=== PATIENT | female | born 1975 | race Caucasian/White ===

== ENCOUNTER → 2017-03-19 | Outpatient (CLI) | payer BC ==
[~2017-03-19] MED LIST: PANT40TA3 PO; POLY10DR19 RIGHT EYE
--- NOTE | 2017-03-19 17:13 | RADRPT ---
PROCEDURE: CT Head without contrast. CLINICAL INDICATION: Headaches TECHNIQUE: The study was performed utilizing a GE 64-slice multidetector CT scanner. Direct spiral axial CT images of the brain were obtained from the vertex to the skull base without contrast. Cor onal and sagittal reformat images are provided. The CTDI vol is 44.03 mGy and the DLP is 630.2 mGy- cm. The images were reviewed on a PACS workstation. COMPARISON: No prior studies are available for comparison. FINDINGS: The ventricles and cortical sulci are within normal limits. The song-white matter differentiation i s maintained. No intra or extra-axial fluid collection or mass effect or shift in the midline struc tures is seen. The visualized paranasal sinuses, mastoid air cells, orbits, and calvarium are unrem arkable. IMPRESSION: Unremarkable CT of the head without contrast. RPTAT: HPNM Physician Leonardo Date Time Electronically viewed and signed by Physician Leonardo on 03/19/2017 17:13 /
== END | disposition home or self-care (01) ==
LOC: C/S 12:04
PROVIDERS: ATTEND Internal Medicine
DX: R51 Headache (principal)
CPT/HCPCS: 70450

== ENCOUNTER 2017-04-04 18:48 | Emergency (ER) | payer SELFPAY ==
[~2017-04-04] VITALS: Ht 165.1 cm; Wt 64.5 kg
[2017-04-04 19:04] VITALS: Ht 165.1 cm; Wt 64.5 kg
[2017-04-05] MEDS ORDERED: HYDR-906 PO (10:16)
[2017-04-05] MEDS ORDERED: ACET500C5 PO (10:16)
[2017-04-05] MEDS ORDERED: FAMO-18 PO (10:17)
[2017-04-05] MEDS ORDERED: ONDA4TAB8 PO (10:18)
== END 2017-04-04 21:05 | disposition left against medical advice (07) ==
LOC: E/R 18:48
DX: Z53.21 Procedure and treatment not carried out due to patient leaving prior to being seen by health care provider (principal)

== ENCOUNTER 2017-04-05 07:09 | Emergency (ER) | payer BC ==
[~2017-04-05] VITALS: Ht 160 cm; Wt 63.4 kg
[2017-04-05 07:18] VITALS: Ht 160 cm; Wt 63.4 kg
[2017-04-05] MEDS ORDERED: ACETAMINOPHEN 500 MG TAB PO STA (07:55)
[2017-04-05] MEDS ORDERED: ONDANSETRON 4 MG INJ IV STA (07:55)
[2017-04-05] MEDS ORDERED: FAMOTIDINE 20 MG INJ IV ONE (08:00)
[2017-04-05] MEDS ORDERED: DICLOFENAC SODIUM 37.5 MG/ML VIAL IV STA (08:01)
[2017-04-05 08:11] LABS: ADD SCAN DIFF NO
[2017-04-05 08:24] LABS: BASOPHILS % 0.1 % (0.0-2.0); EOSINOPHILS % 0.6 % (0.0-7.0); HEMATOCRIT 39.2 % (37.0-47.0); HEMOGLOBIN 13.5 g/dl (12.0-16.0); LYMPHOCYTES # 0.7 10^3/ul (0.8-2.9); LYMPHOCYTES % 9.6 % (15.0-51.0); MEAN CORPUSCULAR HEMOGLOBIN 30.5 pg (29.0-33.0); MEAN CORPUSCULAR HGB CONC 34.4 g/dl (32.0-37.0); MEAN CORPUSCULAR VOLUME 88.7 fl (82.0-101.0); MEAN PLATELET VOLUME 10.5 fl (7.4-10.4); MONOCYTE # 0.3 10^3/ul (0.3-0.9); MONOCYTES % 4.3 % (0.0-11.0); NEUTROPHIL # 6.2 10^3/ul (1.6-7.5); NEUTROPHILS % 85.1 % (39.0-77.0); PLATELET COUNT 211 10^3/UL (140-415); RED BLOOD COUNT 4.42 10^6/ul (4.20-5.40); RED CELL DISTRIBUTION WIDTH 12.5 % (11.5-14.5); WHITE BLOOD COUNT 7.3 10^3/ul (4.8-10.8)
--- NOTE | 2017-04-05 08:29 | RADRPT ---
PROCEDURE: US Abdomen. CLINICAL INDICATION: abdominal pain TECHNIQUE: Multiple real-time images were acquired of the patient's right upper quadrant abdomen a nd retroperitoneum utilizing a high resolution transducer. COMPARISON: None FINDINGS: The liver demonstrates normal echogenicity. The liver is normal in size and no focal solid lesions are seen. The liver measures 15.3 cm in length. The portal vein is patent with normal direction of f low. No intrahepatic biliary dilatation is seen. The patient is status post cholecystectomy. The common bile duct measures 10 mm in maximal dimension . The visualized portions of the pancreas are unremarkable. The tail of the pancreas is not seen. No free fluid is identified. The right kidney is normal in size, and demonstrate normal echogenicity and cortical thickness. The right kidney measures 11.2 cm in long dimension. There is no evidence of hydronephrosis. There are no kidney stones. RPTAT: AA IMPRESSION: Status post cholecystectomy with a dilated CBD. .Poli Howell MD, MD Date Time Electronically viewed and signed by .Poli Howell MD, on 04/05/2017 08:29 .S/
[2017-04-05 08:48] LABS: ALBUMIN 4.9 g/dl (3.3-4.9); ALBUMIN/GLOBULIN RATIO 1.48; BILIRUBIN,INDIRECT 0.9 mg/dl (0-1.1); BILIRUBIN,TOTAL 0.9 mg/dl (0.2-1.3); CREATININE 0.53 mg/dl (0.44-1.00); POTASSIUM 3.5 mmol/L (3.5-5.1); TOTAL PROTEIN 8.2 g/dl (6.1-8.1)
--- NOTE | 2017-04-05 09:11 | ERD ---
ER Documentation Chief Complaint Date/Time DATE: 04/05/17 TIME: 09:11 Chief Complaint EPIGASTRIC PAIN STARTED YESTERDAY,HX OF GASTRITIS HPI This 42-year-old female presents the emergency department today complaining of abdominal pain that started yesterday. Patient states she has a history of gastritis for which she takes Prilosec. States that she took Advil this morning. States she has some nausea. States that she had her gallbladder removed in 2007. States that the pain goes around to her back. Denies any fevers or chills. ROS All systems reviewed and are negative except as per history of present illness. Medications Home Meds Active Scripts Ondansetron Hcl* (Zofran*) 4 Mg Tablet, 4 MG PO Q6H for NAUSEA AND/OR VOMITING, #30 TAB Prov:ALICE STEIN PA-C 04/05/17 Famotidine* (Pepcid*) 20 Mg Tablet, 20 MG PO BID for 7 Days, TAB Prov:ALICE STEIN PA-C 04/05/17 Acetaminophen* (Tylophen*) 500 Mg Capsule, 1 CAP PO Q6H Y for PAIN AND OR ELEVATED TEMP, #30 CAP Prov:ALICE STEIN PA-C 04/05/17 Hydrocodone/Acetaminophen ([place] 5-325 Tablet) 1 Each Tablet, 1 TAB PO Q6H Y for PAIN, #12 TAB Prov:ALICE STEIN PA-C 04/05/17 Polymyxin B Sulfate-TMP* (Polymyxin B-TMP Eye Drops*) 10 Ml Drops, 1 DROP RIGHT EYE QID for 7 Days, EA Prov:MATTHEW GUIDRY PA-C 05/26/16 Reported Medications Pantoprazole* (Protonix*) 40 Mg Tablet.dr, 40 MG PO DAILY 01/22/13 [None] No Conflict Check 01/14/12 Allergies Allergies: Coded Allergies: morphine (Verified Allergy, Severe, hives, 05/30/16) PMhx/Soc History of Surgery: No Anesthesia Reaction: No Hx Neurological Disorder: No Hx Respiratory Disorders: No Hx Cardiac Disorders: No Hx Psychiatric Problems: No Hx Miscellaneous Medical Probl: No Hx Alcohol Use: No Hx Substance Use: No Hx Tobacco Use: No Smoking Status: Never smoker Physical Exam Vitals Vital Signs Date Time Temp Pulse Resp B/P Pulse Ox O2 Delivery O2 Flow Rate FiO2 04/05/17 07:18 98.8 81 18 157/72 98 Physical Exam Const: Mild distress Head: Atraumatic Eyes: Normal Conjunctiva ENT: Normal External Ears, Nose and Mouth. Neck: Full range of motion..~ No meningismus. Resp: Clear to auscultation bilaterally Cardio: Regular rate and rhythm, no murmurs Abd: Soft, epigastric tenderness, mild right upper quadrant tenderness non distended. Normal bowel sounds. No right lower quadrant pain. No tenderness at McBurney's. Skin: No petechiae or rashes Back: No midline or flank tenderness. No CVA tenderness Ext: No cyanosis, or edema Neur: Awake and alert Psych: Normal Mood and Affect Result Diagram: 04/05/17 0806 04/05/17 0806 Results 24 hrs Laboratory Tests Test 04/05/17 08:06 04/05/17 10:09 White Blood Count 7.310^3/ul Red Blood Count 4.4210^6/ul Hemoglobin 13.5g/dl Hematocrit 39.2% Mean Corpuscular Volume 88.7fl Mean Corpuscular Hemoglobin 30.5pg Mean Corpuscular Hemoglobin Concent 34.4g/dl Red Cell Distribution Width 12.5% Platelet Count 26210^3/UL Mean Platelet Volume 10.5fl Neutrophils % 85.1% Lymphocytes % 9.6% Monocytes % 4.3% Eosinophils % 0.6% Basophils % 0.1% Nucleated Red Blood Cells % 0.0/100WBC Neutrophils # 6.210^3/ul Lymphocytes # 0.710^3/ul Monocytes # 0.310^3/ul Eosinophils # 0.010^3/ul Basophils # 0.010^3/ul Nucleated Red Blood Cells # 0.010^3/ul Sodium Level 142mmol/L Potassium Level 3.5mmol/L Chloride Level 106mmol/L Carbon Dioxide Level 24mmol/L Anion Gap 16 Blood Urea Nitrogen 12mg/dl Creatinine 0.53mg/dl Glucose Level 98mg/dl Calcium Level 9.0mg/dl Total Bilirubin 0.9mg/dl Direct Bilirubin 0.00mg/dl Indirect Bilirubin 0.9mg/dl Aspartate Amino Transf (AST/SGOT) 197IU/L Alanine Aminotransferase (ALT/SGPT) 131IU/L Alkaline Phosphatase 87IU/L Total Protein 8.2g/dl Albumin 4.9g/dl Globulin 3.30g/dl Albumin/Globulin Ratio 1.48 Lipase 15U/L Bedside Urine pH (LAB) 5.5 Bedside Urine Protein (LAB) Negative Bedside Urine Glucose (UA) Negative Bedside Urine Ketones (LAB) Negative Bedside Urine Blood 1+ Bedside Urine Nitrite (LAB) Negative Bedside Urine Leukocyte Esterase (L Negative Current Medications Medications (Trade) Dose Ordered Sig/Lois Route PRN Reason Start Time Stop Time Status Last Admin Dose Admin Famotidine (Pepcid Iv) 20 mg ONCE ONCE IV 04/05/17 08:00 04/05/17 08:01 DC 04/05/17 08:20 Ondansetron HCl (Zofran Inj) 4 mg ONCE STAT IV 04/05/17 07:55 04/05/17 08:00 DC 04/05/17 08:20 Acetaminophen (Tylenol Tab) 500 mg ONCE STAT PO 04/05/17 07:55 04/05/17 08:00 DC 04/05/17 08:20 Diclofenac Sodium (Dyloject) 37.5 mg ONCE STAT IV 04/05/17 08:01 04/05/17 08:02 DC 04/05/17 08:20 DIAGNOSTIC IMAGING REPORT Patient: LINETTE DE : 1975 Age: 42 Sex: F MR #: [id number] DOS: 04/05/17 0000 Ordering MD: ALICE STEIN PA-C Location: [facility] Room/Bed: PROCEDURE: US Abdomen. CLINICAL INDICATION: abdominal pain TECHNIQUE: Multiple real-time images were acquired of the patient's right upper quadrant abdomen and retroperitoneum utilizing a high resolution transducer. COMPARISON: None FINDINGS: The liver demonstrates normal echogenicity. The liver is normal in size and no focal solid lesions are seen. The liver measures 15.3 cm in length. The portal vein is patent with normal direction of flow. No intrahepatic biliary dilatation is seen. The patient is status post cholecystectomy. The common bile duct measures 10 mm in maximal dimension. The visualized portions of the pancreas are unremarkable. The tail of the pancreas is not seen. No free fluid is identified. The right kidney is normal in size, and demonstrate normal echogenicity and cortical thickness. The right kidney measures 11.2 cm in long dimension. There is no evidence of hydronephrosis. There are no kidney stones. RPTAT: AA IMPRESSION: Status post cholecystectomy with a dilated CBD. .Poli Howell MD, Date Time Electronically viewed and signed by .Poli Howell MD, MD on 04/05/2017 08: 29 .S/ CC: ALICE STEIN. SHIRLEY Procedures/MDM Is a 42-year-old female who presents the emergency department today complaining of epigastric pain that radiates around her back. On physical exam patient had epigastric pain and very mild right upper quadrant pain. She does not have any CVA tenderness and she is afebrile and otherwise well-appearing. She does have a history gastritis. I did obtain laboratory work, abdominal ultrasound to rule out a retained stone. Laboratory work shows no elevated white blood cell count. She is not anemic. Platelets are within normal limits. Patient's electrolytes are within normal limits. Liver function is elevated. Lipase is mildly decreased UA is negative for infection Urine test is negative Ultrasound shows status post cholecystectomy with a dilated common bile duct of 10 mm in maximal dimension. There is no free fluid. There is no evidence of hydronephrosis. There are no kidney stones. Patient states that she has an allergy to morphine. She was given dilute jacked and Tylenol here in the emergency department. She was also given Zofran and Pepcid. Patient symptoms at this time is consistent with epigastric pain. This may be caused by patient's history of gastritis versus retained stone given the dilated common bile duct and mildly elevated liver enzymes. This was explained to the patient. There does not appear to be serious concern at this time for acute surgical abdomen. Discussed the patient with Dr. Lincoln and the decision was made to do an MRCP on the patient however patient indicated that she did not want to stay here in the emergency department as she had a graduation to go to for her daughter this evening and she just wanted medication for home. Patient indicated that she would follow-up with her doctor as an outpatient to get the MRCP. Dr. Lincoln has also discussed this with the patient and she is in agreement with the plan. Patient was given information on refusal for further treatment and evaluation. Patient was given a prescription for Pepcid, [place] and Tylenol for home. She was instructed to follow-up with her primary care doctor she may return to the emergency department sooner if symptoms persist or worsen. Patient understood. At this time the patient is stable for discharge and outpatient management. Departure Diagnosis: Primary Impression: Abdominal pain Abdominal location: epigastric Qualified Code: R10.13 - Epigastric pain Condition: Fair ALICE STEIN PA-C Apr 05, 2017 09:11
[2017-04-05 10:06] LABS: URINE BLOOD (Dip) POC 1+ (NEGATIVE)
[2017-04-05] MEDS ORDERED: HYDR-906 PO (10:16)
[2017-04-05] MEDS ORDERED: ACET500C5 PO (10:16)
[2017-04-05] MEDS ORDERED: FAMO-18 PO (10:17)
[2017-04-05] MEDS ORDERED: ONDA4TAB8 PO (10:18)
== END 2017-04-05 10:27 | disposition home or self-care (01) ==
LOC: FTE 07:09
DX: R10.13 Epigastric pain (principal)
CPT/HCPCS: 76705; 80053; 81003; 83690; 85025; 96374; 96375; 99285; J2405

== ENCOUNTER 2017-04-09 10:17 | Inpatient (IN) | payer BC ==
[~2017-04-09] VITALS: Ht 162.6 cm; Wt 63.0 kg
[~2017-04-09 10:17] MED LIST changes: +ACET500C5 PO; +FAMO-18 PO; +HYDR-906 PO; +ONDA4TAB8 PO
[2017-04-09] MEDS ORDERED: SOD CHLORIDE 0.9% 1,000 ML IV STA (10:37)
[2017-04-09] MEDS ORDERED: ACETAMINOPHEN 325 MG TAB PO PRN (11:00)
--- NOTE | 2017-04-09 11:28 | RADRPT ---
PROCEDURE: XR Chest. CLINICAL INDICATION: Abdominal pain TECHNIQUE: Single frontal view of the chest was obtained COMPARISON: 05/21/2016 FINDINGS: The heart and mediastinum are within normal limits. The lungs are clear. There is no pleural effusion or pneumothorax. RPTAT: AA IMPRESSION: No acute disease. .Poli Howell MD, MD Date Time Electronically viewed and signed by .Poli Howell MD, MD on 04/09/2017 11:28 .S/
[2017-04-09 11:37] LABS: ADD SCAN DIFF NO
[2017-04-09 11:45] LABS: BASOPHILS % 0.2 % (0.0-2.0); EOSINOPHILS # 0.1 10^3/ul (0.0-0.5); EOSINOPHILS % 1.4 % (0.0-7.0); HEMATOCRIT 37.3 % (37.0-47.0); HEMOGLOBIN 12.6 g/dl (12.0-16.0); LYMPHOCYTES # 2.4 10^3/ul (0.8-2.9); LYMPHOCYTES % 48.3 % (15.0-51.0); MEAN CORPUSCULAR HEMOGLOBIN 30.3 pg (29.0-33.0); MEAN CORPUSCULAR HGB CONC 33.8 g/dl (32.0-37.0); MEAN CORPUSCULAR VOLUME 89.7 fl (82.0-101.0); MEAN PLATELET VOLUME 10.2 fl (7.4-10.4); MONOCYTE # 0.3 10^3/ul (0.3-0.9); NEUTROPHIL # 2.1 10^3/ul (1.6-7.5); NEUTROPHILS % 42.9 % (39.0-77.0); PLATELET COUNT 236 10^3/UL (140-415); RED BLOOD COUNT 4.16 10^6/ul (4.20-5.40); RED CELL DISTRIBUTION WIDTH 12.5 % (11.5-14.5); WHITE BLOOD COUNT 4.9 10^3/ul (4.8-10.8)
[2017-04-09 12:10] LABS: ALBUMIN 5.1 g/dl (3.3-4.9); ALBUMIN/GLOBULIN RATIO 1.7; BILIRUBIN,INDIRECT 0.1 mg/dl (0-1.1); BILIRUBIN,TOTAL 0.1 mg/dl (0.2-1.3); CALCIUM 9.3 mg/dl (8.4-10.2); CREATININE 0.57 mg/dl (0.44-1.00); POTASSIUM 3.7 mmol/L (3.5-5.1); TOTAL PROTEIN 8.1 g/dl (6.1-8.1)
[2017-04-09 12:19] LABS: ADD UMIC YES; URINE BILIRUBIN (Dip) NEGATIVE (NEGATIVE); URINE BLOOD (Dip) 2+ (NEGATIVE); URINE COLOR LT. YELLOW (YELLOW); URINE GLUCOSE (Dip) NEGATIVE (NEGATIVE); URINE KETONES (Dip) NEGATIVE (NEGATIVE); URINE LEUKOCYTE ESTERASE (Dip) NEGATIVE (NEGATIVE); URINE NITRITE (Dip) NEGATIVE (NEGATIVE); URINE TOTAL PROTEIN (Dip) NEGATIVE (NEGATIVE); URINE UROBILINOGEN (Dip) 0.2 E.U./dL (0.1-1.0)
[2017-04-09 12:34] LABS: BACTERIA,URINE RARE; URINE RBCS 0-2 /HPF (0)
--- NOTE | 2017-04-09 13:49 | ERA ---
ER Documentation Chief Complaint Date/Time DATE: 04/09/17 TIME: 13:48 Chief Complaint EPIGASTRIC PAIN X6 DAYS, SEEN ON SATURDAY, DENIES N/V/D HPI Patient is a 42-year-old female who presents for abdominal pain. The patient was sent by Dr. Beard for admission. He tried to direct admit the patient yesterday but unfortunately there were no beds available. The patient has abdominal pain which started morning. The patient was seen in the emergency department on Saturday morning. She has had elevated liver tests. The pain comes and goes. The patient had nausea as well. There have been no fevers. Upon review of old medical records the patient has multiple visits to the ER for various complaints. ROS All systems reviewed and are negative except as per history of present illness. Medications Home Meds Active Scripts Ondansetron Hcl* (Zofran*) 4 Mg Tablet, 4 MG PO Q6H for NAUSEA AND/OR VOMITING, #30 TAB Prov:ALICE STEIN PA-C 04/05/17 Famotidine* (Pepcid*) 20 Mg Tablet, 20 MG PO BID for 7 Days, TAB Prov:ALICE STEIN PA-C 04/05/17 Acetaminophen* (Tylophen*) 500 Mg Capsule, 1 CAP PO Q6H Y for PAIN AND OR ELEVATED TEMP, #30 CAP Prov:ALICE STEIN PA-C 04/05/17 Hydrocodone/Acetaminophen ([place] 5-325 Tablet) 1 Each Tablet, 1 TAB PO Q6H Y for PAIN, #12 TAB Prov:ALICE STEIN PA-C 04/05/17 Reported Medications Pantoprazole* (Protonix*) 40 Mg Tablet., 40 MG PO DAILY 01/22/13 Discontinued Reported Medications [None] No Conflict Check 01/14/12 Discontinued Scripts Polymyxin B Sulfate-TMP* (Polymyxin B-TMP Eye Drops*) 10 Ml Drops, 1 DROP RIGHT EYE QID for 7 Days, EA Prov:MATTHEW GUIDRY PA-C 05/26/16 Allergies Allergies: Coded Allergies: morphine (Verified Allergy, Severe, hives, 05/30/16) PMhx/Soc Medical and Surgical Hx: pt denies Medical Hx, pt denies Surgical Hx History of Surgery: No Anesthesia Reaction: No Hx Neurological Disorder: No Hx Respiratory Disorders: No Hx Cardiac Disorders: No Hx Psychiatric Problems: No Hx Miscellaneous Medical Probl: No Hx Alcohol Use: No Hx Substance Use: No Hx Tobacco Use: No Smoking Status: Never smoker FmHx Family History: No diabetes Physical Exam Vitals Vital Signs Date Time Temp Pulse Resp B/P Pulse Ox O2 Delivery O2 Flow Rate FiO2 04/09/17 11:28 71 18 139/96 100 Room Air 04/09/17 10:30 97.0 67 20 148/74 100 Physical Exam Const: No acute distress Head: Atraumatic Eyes: Normal Conjunctiva ENT: Normal External Ears, Nose and Mouth. Neck: Full range of motion..~ No meningismus. Resp: Clear to auscultation bilaterally Cardio: Regular rate and rhythm, no murmurs Abd: Soft, epigastric tenderness to palpation with guarding Skin: No petechiae or rashes Back: No midline or flank tenderness Ext: No cyanosis, or edema Neur: Awake and alert Psych: Normal Mood and Affect Result Diagram: 04/09/17 1115 04/09/17 1115 Results 24 hrs Laboratory Tests Test 04/09/17 11:15 04/09/17 11:57 White Blood Count 4.910^3/ul Red Blood Count 4.1610^6/ul Hemoglobin 12.6g/dl Hematocrit 37.3% Mean Corpuscular Volume 89.7fl Mean Corpuscular Hemoglobin 30.3pg Mean Corpuscular Hemoglobin Concent 33.8g/dl Red Cell Distribution Width 12.5% Platelet Count 50770^3/UL Mean Platelet Volume 10.2fl Neutrophils % 42.9% Lymphocytes % 48.3% Monocytes % 7.0% Eosinophils % 1.4% Basophils % 0.2% Nucleated Red Blood Cells % 0.0/100WBC Neutrophils # 2.110^3/ul Lymphocytes # 2.410^3/ul Monocytes # 0.310^3/ul Eosinophils # 0.110^3/ul Basophils # 0.010^3/ul Nucleated Red Blood Cells # 0.010^3/ul Sodium Level 146mmol/L Potassium Level 3.7mmol/L Chloride Level 106mmol/L Carbon Dioxide Level 29mmol/L Anion Gap 15 Blood Urea Nitrogen 8mg/dl Creatinine 0.57mg/dl Glucose Level 89mg/dl Calcium Level 9.3mg/dl Total Bilirubin 0.1mg/dl Direct Bilirubin 0.00mg/dl Indirect Bilirubin 0.1mg/dl Aspartate Amino Transf (AST/SGOT) 49IU/L Alanine Aminotransferase (ALT/SGPT) 118IU/L Alkaline Phosphatase 120IU/L Total Protein 8.1g/dl Albumin 5.1g/dl Globulin 3.00g/dl Albumin/Globulin Ratio 1.70 Lipase 19U/L Urine Color LT. YELLOW Urine Clarity CLEAR Urine pH 5.5 Urine Specific [place] >=1.030 Urine Ketones NEGATIVE Urine Nitrite NEGATIVE Urine Bilirubin NEGATIVE Urine Urobilinogen 0.2 E.U./dL Urine Leukocyte Esterase NEGATIVE Urine Microscopic RBC 0-2/HPF Urine Microscopic WBC 0-2/HPF Urine Epithelial Cells RARE Urine Bacteria RARE Urine Hemoglobin 2+ Urine Glucose NEGATIVE% Urine Total Protein NEGATIVE Current Medications Medications (Trade) Dose Ordered Sig/Lois Route PRN Reason Start Time Stop Time Status Last Admin Dose Admin Sodium Chloride (NS) 1,000 ml @ 1,000 mls/hr Q1H STAT IV 04/09/17 10:37 04/09/17 11:36 DC 04/09/17 11:18 Ondansetron HCl (Zofran Inj) 4 mg BRIDGE ORDER PRN IV NAUSEA AND/OR VOMITING 04/09/17 11:00 04/10/17 10:59 Acetaminophen (Tylenol Tab) 650 mg ER BRIDGE PRN PO MILD PAIN/FEVER 04/09/17 11:00 04/10/17 10:59 Procedures/MDM Patient is a 42-year-old female who presents with abdominal pain. Her AST and ALT are slightly elevated. She has had a previous cholecystectomy. Dr. Beard would like to admit her to a medical surgical bed. He plans to do an MRCP to further evaluate the cause of her pain and elevated liver tests. At this point I doubt cholecystitis, pancreatitis, appendicitis, or bowel obstruction. Departure Diagnosis: Primary Impression: Elevated liver enzymes Additional Impression: Epigastric pain Condition: TRACY Lopez MD Apr 09, 2017 13:49
[2017-04-09 18:19] VITALS: PULSE 56
[2017-04-09] MEDS ORDERED: HYDROmorphONE 1 MG/ML SYG IV PRN (18:30)
--- NOTE | 2017-04-09 18:36 | HP ---
DATE OF ADMISSION: 04/09/2017 HISTORY OF PRESENT ILLNESS: The patient is a 42-year-old lady known to me from previous followup, p resenting with severe recurrent abdominal pain for the past 5 days. The patient was seen 3 days josiah or and was advised admission, and patient did not want to be admitted and I saw her in the office ye sterday. I attempted to admit the patient directly, but there were no beds available. The patient was therefore referred to the emergency room from where she is in the process of being admitted. REVIEW OF SYSTEMS: HEAD: No history of headaches, focal weakness, or numbness. EYES: No blurry vision or glaucoma. ENT: Noncontributory. NECK: No history of thyroid disease. CHEST: No bronchitis, hayfever, or asthma. HEART: No PND, orthopnea, palpitations. GASTROINTESTINAL: Abdominal pain as above. The patient nauseous, has been having poor p.o. intake. No history of jaundice. Status post cholecystectomy 2 years ago. GENITOURINARY: No dysuria, hematuria, or kidney stones. PHYSICAL EXAMINATION: GENERAL: The patient is an average-built female who is very pleasant. VITAL SIGNS: Afebrile, blood pressure 123/78, respirations 20 per minute. HEENT: Head normocephalic. Mild pallor without cyanosis. Tongue is coated, dry. NECK: Supple. No thyromegaly, bruits or lymphadenopathy. CHEST: Clinically clear. ABDOMEN: Soft, moderate epigastric tenderness without rebound. EXTREMITIES: No edema. LABORATORY DATA: WBC count 4.9, hematocrit 37.3. AST is 49, ALT is 118. UA shows 2+ hemoglobin. Chest x-ray shows normal size heart, lung singletary clear. IMPRESSION: Severe recurrent abdominal pain for the last 5 days with increased transaminase levels. Rule out choledocholithiasis. PLAN: Admit the patient. IV hydration. Start the patient on Zosyn. Order for MRCP and GI consul tation with Dr. Perez and we will follow the recommendations. Dictated By: SHAHZAD LADD MD SR/NTS Conf#: [id number] DID#: [id number]
[2017-04-09] MEDS: D5W-0.45 NACL + KCL 20 MEQ 1,000 ML IV SCH (19:00)
[2017-04-09 21:45] VITALS: BP 137/80; RESP 20; Ht 162.6 cm; Wt 63.0 kg
[2017-04-09] MEDS: PIPER-TAZO 3.375 GM IV (PMX) 100 ML IVPB SCH (22:17)
[2017-04-09] MEDS: ONDANSETRON 4 MG INJ IV PRN (22:22)
--- NOTE | 2017-04-09 22:35 | CONS ---
Date/Time of Note Date/Time of Note DATE: 04/09/17 TIME: 22:31 Assessment/Plan Assessment/Plan Additional Assessment/Plan 1.abdominal pain ,abnormal liver function,dilated bile duct,R/O bile duct stone, gastritis,biliary dyskinesia Consultation Date/Type/Reason Admit Date/Time Apr 09, 2017 at 10:39 Initial Consult Date 24 HR Interval Summary Free Text/Dictation abdominal pain,nausea Exam/Review of Systems Vital Signs Vitals Vital Signs Date Time Temp Pulse Resp B/P Pulse Ox O2 Delivery O2 Flow Rate FiO2 04/09/17 18:19 56 18 130/87 100 Room Air 04/09/17 10:30 97.0 Exam Constitutional: alert, oriented, well developed Psych: nl mood/affect, no complaints Head: atraumatic, normocephalic Eyes: EOMI, PERRL, nl conjunctiva, nl lids, nl sclera ENMT: nl external ears & nose, nl lips & teeth, nl nasal mucosa & septum Neck: non-tender, supple Respiratory: clear to auscultation, normal air movement Cardiovascular: nl pulses, regular rate and rhythm Gastrointestinal: nl liver, spleen, non-tender, soft Musculoskeletal: nl extremities to inspection, nl gait and stance Extremities: normal pulses 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, nl mental status, nl speech, nl strength Skin: nl turgor, No rash or lesions Lymph: nl lymph nodes Results Result Diagram: 04/09/17 1115 04/09/17 1115 Results 24 hrs Laboratory Tests Test 04/09/17 11:15 04/09/17 11:57 White Blood Count 4.9 # Red Blood Count 4.16 L Hemoglobin 12.6 Hematocrit 37.3 Mean Corpuscular Volume 89.7 Mean Corpuscular Hemoglobin 30.3 Mean Corpuscular Hemoglobin Concent 33.8 Red Cell Distribution Width 12.5 Platelet Count 236 Mean Platelet Volume 10.2 Neutrophils % 42.9 Lymphocytes % 48.3 Monocytes % 7.0 Eosinophils % 1.4 Basophils % 0.2 Nucleated Red Blood Cells % 0.0 Neutrophils # 2.1 Lymphocytes # 2.4 Monocytes # 0.3 Eosinophils # 0.1 Basophils # 0.0 Nucleated Red Blood Cells # 0.0 Sodium Level 146 H Potassium Level 3.7 Chloride Level 106 Carbon Dioxide Level 29 Anion Gap 15 Blood Urea Nitrogen 8 Creatinine 0.57 Glucose Level 89 Calcium Level 9.3 Total Bilirubin 0.1 L Direct Bilirubin 0.00 Indirect Bilirubin 0.1 Aspartate Amino Transf (AST/SGOT) 49 H Alanine Aminotransferase (ALT/SGPT) 118 H Alkaline Phosphatase 120 Total Protein 8.1 Albumin 5.1 H Globulin 3.00 Albumin/Globulin Ratio 1.70 Lipase 19 L Urine Color LT. YELLOW Urine Clarity CLEAR Urine pH 5.5 Urine Specific [place] >=1.030 H Urine Ketones NEGATIVE Urine Nitrite NEGATIVE Urine Bilirubin NEGATIVE Urine Urobilinogen 0.2 E.U./dL Urine Leukocyte Esterase NEGATIVE Urine Microscopic RBC 0-2 Urine Microscopic WBC 0-2 Urine Epithelial Cells RARE Urine Bacteria RARE Urine Hemoglobin 2+ H Urine Glucose NEGATIVE Urine Total Protein NEGATIVE Medications Medications Current Medications Piperacillin Sod/ Tazobactam Sod (Zosyn 3.375gm/ 100 ml (Pmx)) 100 ml @ 200 mls /hr Q8 IVPB Last administered on 04/09/17 22:17; Admin Dose 200 MLS/HR; Start 04/09/17 at 22:00 Hydromorphone HCl 1 mg 1 mg Q4 PRN IV PAIN LEVEL 6-10 Last administered on 22:22; Admin Dose 1 MG; Start 04/09/17 at 18:30 Potassium Chloride/Dextrose/ Sod Cl (D5-1/2ns + KCl 20 Meq) 1,000 ml @ 75 mls/ hr [id number] IV Last administered on 04/09/17 19:00; Admin Dose 75 MLS/HR; Start 04/09/17 at 18:30 SINA HUMPHREY MD Apr 09, 2017 22:34
[2017-04-10 05:22] LABS: ADD SCAN DIFF NO
[2017-04-10 05:30] LABS: BASOPHILS % 0.2 % (0.0-2.0); EOSINOPHILS % 0.2 % (0.0-7.0); HEMATOCRIT 36.7 % (37.0-47.0); HEMOGLOBIN 12.6 g/dl (12.0-16.0); LYMPHOCYTES # 1.3 10^3/ul (0.8-2.9); LYMPHOCYTES % 21.9 % (15.0-51.0); MEAN CORPUSCULAR HEMOGLOBIN 30.4 pg (29.0-33.0); MEAN CORPUSCULAR HGB CONC 34.3 g/dl (32.0-37.0); MEAN CORPUSCULAR VOLUME 88.6 fl (82.0-101.0); MONOCYTE # 0.3 10^3/ul (0.3-0.9); MONOCYTES % 5.5 % (0.0-11.0); NEUTROPHIL # 4.3 10^3/ul (1.6-7.5); PLATELET COUNT 246 10^3/UL (140-415); RED BLOOD COUNT 4.14 10^6/ul (4.20-5.40); RED CELL DISTRIBUTION WIDTH 12.1 % (11.5-14.5)
[2017-04-10 05:50] LABS: ALBUMIN 4.9 g/dl (3.3-4.9); ALBUMIN/GLOBULIN RATIO 1.68; BILIRUBIN,INDIRECT 0.2 mg/dl (0-1.1); BILIRUBIN,TOTAL 0.2 mg/dl (0.2-1.3); CALCIUM 8.9 mg/dl (8.4-10.2); CREATININE 0.6 mg/dl (0.44-1.00); POTASSIUM 4.3 mmol/L (3.5-5.1); TOTAL PROTEIN 7.8 g/dl (6.1-8.1)
[2017-04-10] MEDS: PIPER-TAZO 3.375 GM IV (PMX) 100 ML IVPB SCH ×3 (06:01→22:10)
[2017-04-10] MEDS: ONDANSETRON 4 MG INJ IV PRN (08:21)
[2017-04-10 08:52] VITALS: BP 134/70; RESP 16
[2017-04-10] MEDS ORDERED: KETOROLAC 15 MG INJ IV STA (09:35)
[2017-04-10] MEDS ORDERED: PANTOPRAZOLE 40 MG INJ IV ONE (10:00)
--- NOTE | 2017-04-10 11:18 | RADRPT ---
PROCEDURE: MRCP. CLINICAL INDICATION: Abdominal pain, abnormal liver function tests. TECHNIQUE: MRCP was performed. Patient was examined without contrast. 3-D coronal rotating MIP i mages of the biliary tree are available for review. COMPARISON: Ultrasound, 04/05/2017 FINDINGS: The gallbladder is surgically absent. There is nonspecific mild prominence of the intra and extrahe patic biliary ducts - common bile duct maximal diameter is 9 mm. No common duct stone, stricture or filling defect is identified. Pancreatic duct is normal in caliber. Liver, pancreas, spleen, adrenal glands and kidneys are unremarkable. There is no obstructive uropa thy. The stomach is grossly unremarkable. Abdominal aorta is normal in caliber. No retroperitonea l or jerry hepatis lymphadenopathy is seen. There is no bowel obstruction, abscess or ascites. The surrounding osseous structures are unremarkable. IMPRESSION: 1. Gallbladder is surgically absent. 2. There is nonspecific prominence intra and extrahepatic biliary ducts - common bile duct maximal diameter is 9 mm. No common duct stone, stricture or filling defect is seen. RPTAT: EE .Pop Cooley MD, MD Date Time Electronically viewed and signed by .Pop Cooley MD, on 04/10/2017 11:18 .R/
[2017-04-10] MEDS: D5W-0.45 NACL + KCL 20 MEQ 1,000 ML IV SCH ×2 (11:43→21:10)
[2017-04-10] MEDS ORDERED: IOHEXOL 14.3 MG(I)/ML (ADULT) BTL PO ONE (14:30)
[2017-04-10] MEDS ORDERED: IOHEXOL 300MG/ML 150 ML BTL ONE (16:03)
[2017-04-10] MEDS ORDERED: SOD CHLORIDE 0.9% 100 ML ONE (16:03)
--- NOTE | 2017-04-10 17:37 | RADRPT ---
PROCEDURE: CT abdomen and pelvis with contrast and with 3-D reconstructions CLINICAL INDICATION: Elevated LFTs TECHNIQUE: CT scan of the abdomen and pelvis with intravenous contrast was performed on a multisli ce CT scanner. 3-D sagittal and coronal reformatted images were obtained from the axial source image s. DLP 537.24 mGycm CTDIvol 10.31 mGy COMPARISON: MRI abdomen from the same date FINDINGS: The visualized lung bases are unremarkable. The liver is homogenous in attenuation. There are no focal liver lesions. There is nonspecific mild intrahepatic biliary ductal dilatation. There are surgical clips in the gallbladder fossa consisten t with cholecystectomy. The extrahepatic common bile duct measures up to 9 mm in diameter which is at least in part due to post cholecystectomy change. The spleen, pancreas, and adrenal glands are within normal limits. The pancreatic duct is nondilated . The kidneys are symmetric. There is a sub-centimeter hypodensity in the midpole of the left kidney which is nonspecific, but likely a cyst.. There are no renal calculi. There is no obstructive uropat hy. There are no dilated or thickened loops of bowel. The appendix is within normal limits. There are a few primarily sigmoid colonic diverticula without evidence of diverticulitis. The aorta is within normal limits. There are no enlarged mesenteric, periaortic, or retroperitoneal lymph nodes. The bladder is within normal limits. The uterus is not visualized. There is no free air. There is n o free fluid. There are no enlarged intrapelvic or inguinal lymph nodes. Osseous and soft tissue structures are unremarkable. IMPRESSION: Redemonstration of nonspecific mild intrahepatic biliary ductal dilatation. The patient is status p ost cholecystectomy and the common bile duct measures up to 9 mm which is at least in part due to po st cholecystectomy change. Correlation with a bilirubin level for signs of cholestasis is recommend ed. No renal/ureteral calculi or hydronephrosis. Normal appendix. Colonic diverticula without evidence of diverticulitis. These findings were discussed with Micky Barragan over the phone on 04/10/2017 at 5:36 PM . RPTAT: EE Physician Mamie Date Time Electronically viewed and signed by Physician Mamie on 04/10/2017 17:37 RA/
--- NOTE | 2017-04-10 18:05 | CONS ---
DATE OF ADMISSION: 04/09/2017 DATE OF CONSULTATION: 04/10/2017 TYPE OF CONSULTATION: Urology REQUESTING PHYSICIAN: Dr. Beard Dear Micky, Thank you for asking me to see this patient in urological consultation. HISTORY OF PRESENT ILLNESS: She is a 42-year-old female who works at [employer] a nd she presented with pain in the epigastric area going under the right subcostal area and towards t he back. The patient has had this pain constantly for the past 3 or 4 days. The pain is associated with nausea, but there was no vomiting. The patient underwent an MRI of the abdomen and that showe d that there is nonspecific prominence and intra- and extrahepatic biliary duct dilatation. There is a common bile duct maximal diameter is 9 mm, no common duct stone, stricture or filling defect an d a urological consultation was requested to see if there is any urological explanation for her pain . The patient denies having any dysuria, no hematuria, no history of kidney stones. PAST MEDICAL HISTORY: Includes a history of she is a 5, para 4, 1 miscarriage and 4 normal deliveries. She has had a hysterectomy for fibroids and also cholecystectomy. ALLERGIES: MORPHINE. SOCIAL HISTORY: Does not smoke, does not drink any alcohol, and there is no history of drug abuse. MEDICATIONS: Include: 1. Zosyn. 2. Dilaudid. 3. Potassium chloride. PHYSICAL EXAMINATION: GENERAL: Reveals a 42-year-old female who is presently comfortable, in no acute distress. HEAD AND NECK: Unremarkable. The neck is supple. BACK: There is no flank tenderness. ABDOMEN: Soft. She points to her right subcostal and epigastric area as the area of the pain. The re is no abdominal mass palpable. No suprapubic tenderness. PELVIC: Revealed no mass and no discharge. LABORATORY DATA: Her CBC shows a white count of 6.0, hemoglobin 12.6, hematocrit 36.7. BUN is 8, c reatinine 0.6, AST is 107, ALT 137. The urinalysis, 2+ occult blood and she has 0 to 2 RBCs, 0 to 2 WBCs. The patient then underwent a CT scan of the abdomen and pelvis after you and I discussed it on the phone and again, the CT scan showed normal kidneys, but there is intra and extrahepatic duct dilatation and the appendix is normal and there is some diverticulosis, but no diverticulitis. IMPRESSION: Normal urinary system. No urinary pathology that may explain her pain. Her pain is st ill most likely gastrointestinal and especially that her ALT and AST are elevated. RECOMMENDATION: From a urological standpoint, she does not need any further workup and I recommend the GI workup as planned by Dr. Perez. Dictated By: JUAN SAMUELS/STEPHON Conf#: [id number] DID#: [id number]
--- NOTE | 2017-04-10 22:00 | CONS ---
DATE OF ADMISSION: 04/09/2017 DATE OF CONSULTATION: TYPE OF CONSULTATION: Gastroenterology. HISTORY OF PRESENT ILLNESS: A 42-year-old female admitted to the hospital for pain in epigastric ar ea, right upper quadrant, radiating to the back, associated with some nausea. No fever, no chills. No GI bleeding. No chest pain, no shortness of breath, no heartburn. 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 PAST MEDICAL HISTORY: The patient had hysterectomy for a fibroid and cholecystectomy. ALLERGIES: MORPHINE. SOCIAL HISTORY: Does not smoke or drink alcohol. No history of drug abuse. MEDICATIONS: In the hospital: 1. Zosyn. 2. Dilaudid. 3. Potassium chloride. PHYSICAL EXAMINATION: GENERAL: Well built, nourished, not in distress. VITAL SIGNS: Stable. HEENT: Unremarkable. NECK: Supple. No thyromegaly, no lymphadenopathy. CARDIOVASCULAR: No murmur, gallop or click. LUNGS: Clear. ABDOMEN: Benign. IMAGING: I reviewed sonogram, CAT scan and MRCP. All of them showed a dilated biliary system, both extrahepatic and intrahepatic, believed to be compensatory from the cholecystectomy. Liver functio n had been normal. No other pathology was found on CAT scan. IMPRESSION: 1. Epigastric and right upper quadrant pain radiating to back, biliary colic in nature, rule out bi le duct stone. MRCP can still miss 15% to 20% stone in the distal part of the bile duct. 2. Rule out peptic ulcer disease. 3. Rule out biliary dyskinesia syndrome. The plan at this point is to continue present care, PPI. If the pain is persistent, then may do ERC P for a possible bile duct stone or EGD to rule out peptic ulcer disease. I will discuss the patien t and based on persistent symptoms will decide regarding the further diagnostic workup. Dictated By: SINA INTERIANO/NTS Conf#: [id number] DID#: [id number] CC: SHAHZAD LADD MD;*EndCC*
[2017-04-10 22:09] VITALS: BP 118/67; RESP 20
[2017-04-11] MEDS: D5W-0.45 NACL + KCL 20 MEQ 1,000 ML IV SCH (03:56)
[2017-04-11] MEDS: PIPER-TAZO 3.375 GM IV (PMX) 100 ML IVPB SCH (05:45)
--- NOTE | 2017-04-11 07:37 | PN ---
DATE: 04/10/2017 SUBJECTIVE: The patient has abdominal discomfort which continues, also complaining of severe headac he, prior history of migraine. Dr. Perez's GI consultation and recommendations are greatly appreciated. PHYSICAL EXAMINATION: VITAL SIGNS: Patient is afebrile. Blood pressure 134/70, respiration 20 per minute. ABDOMEN: Soft, mild epigastric tenderness without rebound. EXTREMITIES: No edema. LABORATORY DATA: WBC count is 6.0, hematocrit 36.4, platelet count 246,000. Sodium 143, potassium 4.3, AST is 107, ALT is 137, which is increased from yesterday. MRCP pending. IMPRESSION: 1. Severe abdominal pain with abnormal liver function tests, rule out bile duct stone. 2. History of migraine. PLAN: The patient states she is not tolerating Dilaudid as well. We will give her 1 dose of [place] l now, evaluate MRCP results and then follow recommendations per Dr. Perez. Dictated By: SHAHZAD LADD MD SR/STEPHON Conf#: [id number] DID#: [id number]
[2017-04-11] MEDS ORDERED: PANTOPRAZOLE (EC) 40 MG TAB PO SCH (08:00)
[2017-04-11 08:30] VITALS: BP 121/62; RESP 18
[2017-04-11 11:06] LABS: ADD SCAN DIFF NO
[2017-04-11 11:08] LABS: BASOPHILS % 0.2 % (0.0-2.0); EOSINOPHILS # 0.1 10^3/ul (0.0-0.5); EOSINOPHILS % 1.2 % (0.0-7.0); HEMATOCRIT 34.9 % (37.0-47.0); HEMOGLOBIN 11.7 g/dl (12.0-16.0); LYMPHOCYTES # 2.5 10^3/ul (0.8-2.9); LYMPHOCYTES % 50.4 % (15.0-51.0); MEAN CORPUSCULAR HEMOGLOBIN 30.4 pg (29.0-33.0); MEAN CORPUSCULAR HGB CONC 33.5 g/dl (32.0-37.0); MEAN CORPUSCULAR VOLUME 90.6 fl (82.0-101.0); MEAN PLATELET VOLUME 9.5 fl (7.4-10.4); MONOCYTE # 0.3 10^3/ul (0.3-0.9); MONOCYTES % 5.8 % (0.0-11.0); NEUTROPHIL # 2.1 10^3/ul (1.6-7.5); NEUTROPHILS % 42.2 % (39.0-77.0); PLATELET COUNT 223 10^3/UL (140-415); RED BLOOD COUNT 3.85 10^6/ul (4.20-5.40); RED CELL DISTRIBUTION WIDTH 12.5 % (11.5-14.5)
[2017-04-11 11:28] LABS: ALBUMIN 4.4 g/dl (3.3-4.9); ALBUMIN/GLOBULIN RATIO 1.76; BILIRUBIN,INDIRECT 0.3 mg/dl (0-1.1); BILIRUBIN,TOTAL 0.3 mg/dl (0.2-1.3); CALCIUM 8.8 mg/dl (8.4-10.2); CREATININE 0.62 mg/dl (0.44-1.00); POTASSIUM 4.5 mmol/L (3.5-5.1); TOTAL PROTEIN 6.9 g/dl (6.1-8.1)
--- NOTE | 2017-04-11 13:19 | DS ---
DATE OF ADMISSION: 04/09/2017 DATE OF DISCHARGE: 04/11/2017 FINAL DIAGNOSES: 1. Acute abdominal pain, biliary colic, MRCP negative. 2. Possible underlying peptic ulcer disease. 3. Hematuria. No evidence of stones in the genitourinary tract. HOSPITAL COURSE: The patient is a 42-year-old lady well known to me from previous followup, present ing with severe recurrent abdominal pain 5 days prior, was seen 3 days prior in the emergency room, was advised admission. The patient did not want to be admitted and was seen in my office on 017. Attempted to admit the patient, but there were no beds available. She was referred to the [facility] room, from where she was admitted. When the patient was seen in the emergency room, her init ial AST was 49, ALT was 118. UA showed 2+ hemoglobin. The patient was seen by Dr. Perez from [facility]. The patient was maintained on course of Zosyn. MRCP showed surgical absence of gallblad nancy. No common bile duct stone, stricture, or filling defect was seen. Since she had hematuria, mi croscopic, consultation obtained with Dr. Tinajero and after discussion with him, a CT of the abdo men and pelvis was performed, which showed nonspecific mild intrahepatic biliary ductal dilatation, status post cholecystectomy. No renal or ureteral calculi or hydronephrosis seen. The patient was discharged home in much improved condition on a course of Protonix 40 mg p.o. daily, to be followed by Dr. Perez as outpatient for consideration of ERCP if necessary and EGD to rule out peptic ulcer disease. Dictated By: SHAHZAD LADD MD, SR/NTS Conf#: [id number] DID#: [id number]
--- NOTE | 2017-04-11 21:56 | CONS ---
Date/Time of Note Date/Time of Note DATE: 04/11/17 TIME: 21:54 Assessment/Plan Assessment/Plan Additional Assessment/Plan IMPRESSION: 1. Epigastric and right upper quadrant pain radiating to back, biliary colic in nature, rule out bile duct stone. MRCP can still miss 15% to 20% stone in the distal part of the bile duct. 2. Rule out peptic ulcer disease. 3. Rule out biliary dyskinesia syndrome. plan PPI F/U in office, Consultation Date/Type/Reason Admit Date/Time Apr 09, 2017 at 10:39 24 HR Interval Summary Constitutional: improved, no complaints Exam/Review of Systems Vital Signs Vitals Vital Signs Date Time Temp Pulse Resp B/P Pulse Ox O2 Delivery O2 Flow Rate FiO2 04/11/17 08:30 97.8 61 18 121/62 91 04/09/17 18:19 Room Air Intake and Output 04/10/17 04/10/17 04/11/17 14:59 22:59 06:59 Intake Total 1040 ml 1600 ml Output Total 1400 ml Balance -360 ml 1600 ml Exam Constitutional: alert, oriented, well developed Psych: nl mood/affect, no complaints Head: atraumatic, normocephalic Eyes: EOMI, PERRL, nl conjunctiva, nl lids, nl sclera ENMT: nl external ears & nose, nl lips & teeth, nl nasal mucosa & septum Neck: non-tender, supple Respiratory: clear to auscultation, normal air movement Cardiovascular: nl pulses, regular rate and rhythm Gastrointestinal: nl liver, spleen, non-tender, soft Musculoskeletal: nl extremities to inspection, nl gait and stance Extremities: normal pulses 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, nl mental status, nl speech, nl strength Skin: nl turgor, No rash or lesions Lymph: nl lymph nodes Results Result Diagram: 04/11/17 1100 04/11/17 1100 Results 24 hrs Laboratory Tests Test 04/11/17 11:00 White Blood Count 5.0 Red Blood Count 3.85 L Hemoglobin 11.7 L Hematocrit 34.9 L Mean Corpuscular Volume 90.6 Mean Corpuscular Hemoglobin 30.4 Mean Corpuscular Hemoglobin Concent 33.5 Red Cell Distribution Width 12.5 Platelet Count 223 Mean Platelet Volume 9.5 Neutrophils % 42.2 Lymphocytes % 50.4 Monocytes % 5.8 Eosinophils % 1.2 Basophils % 0.2 Nucleated Red Blood Cells % 0.0 Neutrophils # 2.1 Lymphocytes # 2.5 Monocytes # 0.3 Eosinophils # 0.1 Basophils # 0.0 Nucleated Red Blood Cells # 0.0 Sodium Level 146 H Potassium Level 4.5 Chloride Level 110 Carbon Dioxide Level 27 Anion Gap 14 Blood Urea Nitrogen 8 Creatinine 0.62 Glucose Level 93 Calcium Level 8.8 Total Bilirubin 0.3 Direct Bilirubin 0.00 Indirect Bilirubin 0.3 Aspartate Amino Transf (AST/SGOT) 41 Alanine Aminotransferase (ALT/SGPT) 86 H Alkaline Phosphatase 82 Total Protein 6.9 Albumin 4.4 Globulin 2.50 Albumin/Globulin Ratio 1.76 SINA HUMPHREY MD Apr 11, 2017 21:56
== END 2017-04-11 14:19 | disposition home or self-care (01) | DRG 446 ==
LOC: E/R 10:17 → MS1 10:39
PROVIDERS: ADMIT Internal Medicine; ATTEND Internal Medicine
DX: K80.50 Calculus of bile duct without cholangitis or cholecystitis without obstruction (principal); K27.9 Peptic ulcer, site unspecified, unspecified as acute or chronic, without hemorrhage or perforation; R74.8 Abnormal levels of other serum enzymes; R31.29 Other microscopic hematuria; Z90.49 Acquired absence of other specified parts of digestive tract; Z90.710 Acquired absence of both cervix and uterus
CPT/HCPCS: 36415; 71010; 74177; 74181; 80053; 81001; 83690; 85025; 87086; 93005; C9113; J1170; J1885; J2405; J2543; J3480; J7030; Q9967

== ENCOUNTER 2017-05-11 21:31 | Emergency (ER) | payer BC ==
[~2017-05-11] VITALS: Wt 63.0 kg
[~2017-05-11 21:31] MED LIST changes: -ACET500C5 PO; -FAMO-18 PO; -HYDR-906 PO; -ONDA4TAB8 PO; -POLY10DR19 RIGHT EYE
[2017-05-11] MEDS ORDERED: ONDANSETRON 4 MG INJ IV STA (22:27)
[2017-05-11] MEDS ORDERED: SOD CHLORIDE 0.9% 1,000 ML IV STA (22:27)
[2017-05-11] MEDS ORDERED: FAMOTIDINE 20 MG INJ IV ONE (22:30)
--- NOTE | 2017-05-11 22:44 | ERD ---
ER Documentation Chief Complaint Date/Time DATE: 05/11/17 TIME: 22:42 Chief Complaint EPIGASTRIC PAIN/ NAUSEA SINCE 1899 HPI 42-year-old female presents here in emergency department for complaints of epigastric pain and nausea started tonight. Patient describes the pain as sharp pain, 6/10 scale, accompanied with nausea. Patient denies any vomiting. Patient has been admitted before for elevated liver enzymes, had a MRCP done ultrasound and CAT scan done, was admitted here in the Hospital for evaluation, but further testing, no gallbladder stones were noted. Patient continues to have the pain. Patient was sent home with Protonix which she took today. She denies any fever or chills. Patient denies any diarrhea or constipation. Patient denies any blurriness or blood. Patient denies any dyspnea on exertion or dyspnea on lying down. ROS All systems reviewed and are negative except as per history of present illness. Medications Home Meds Active Scripts Magaldrate/Simethicone* (Mylanta*) 355 Ml Susp, 30 ML PO QID Y for GASTROINTESTINAL UPSET, #1 BOTTLE Prov:RONALDO PISANO NP 05/12/17 Hydrocodone/Acetaminophen ([place] 5-325 Tablet) 1 Each Tablet, 1 EACH PO Q6, #20 TAB Prov:RONALDO PISANO NP 05/12/17 Ondansetron (Ondansetron Odt) 4 Mg Tab.rapdis, 4 MG PO Q8 Y for NAUSEA AND/OR VOMITING, #20 TAB Prov:RONALDO PISANO NP 05/12/17 Polyethylene Glycol* (Miralax*) 17 Gm Powd.pack, 17 GM PO DAILY, #7 Prov:RONALDO PIASNO NP 05/12/17 Docusate Sodium* (Colace*) 100 Mg Capsule, 100 MG PO TID, #30 CAP Prov:RONALDO PSIANO NP 05/12/17 Reported Medications Pantoprazole* (Protonix*) 40 Mg Tablet.dr, 40 MG PO DAILY 01/22/13 Allergies Allergies: Coded Allergies: morphine (Verified Allergy, Severe, hives, 05/30/16) PMhx/Soc History of Surgery: Yes (CHOLECYSTECTOMY 2007, VAGINAL [id number], (R) FOOT BUNION SURGERY ) Anesthesia Reaction: No Hx Neurological Disorder: No Hx Respiratory Disorders: No Hx Cardiac Disorders: No Hx Psychiatric Problems: No Hx Miscellaneous Medical Probl: No Hx Alcohol Use: No Hx Substance Use: No Hx Tobacco Use: Yes Smoking Status: Current every day smoker FmHx Family History: No coronary disease, No diabetes, No other Physical Exam Vitals Vital Signs Date Time Temp Pulse Resp B/P Pulse Ox O2 Delivery O2 Flow Rate FiO2 05/11/17 21:37 98.1 66 18 170/84 100 Physical Exam GENERAL: The patient is well developed and appropriate for usual state of health, in no apparent distress. CHEST: Clear to auscultation bilaterally. There are no rales, wheezes or rhonchi. HEART: Regular rate and rhythm. No murmurs, clicks, rubs or gallops. No S3 or S4. ABDOMEN: Soft, nontender and nondistended. Good bowel sounds. No rebound or guarding. No gross peritonitis. No gross organomegaly or masses. No Samuels sign or McBurney point tenderness. BACK: No midline or flank tenderness. EXTREMITIES: Equal pulses bilaterally. There is no peripheral clubbing, cyanosis or edema. No focal swelling or erythema. Full range of motion. Grossly neurovascularly intact. NEURO: Alert and oriented. Cranial nerves 2-12 intact. Motor strength in all 4 extremities with 5/5 strength. Sensation grossly intact. Normal speech and gait. SKIN: There is no apparent rash or petechia. The skin is warm and dry. HEMATOLOGIC AND LYMPHATIC: There is no evidence of excessive bruising or lymphedema. No gross cervical, axillary, or inguinal lymphadenopathy. Result Diagram: 05/11/17224905/11/172249 Results 24 hrs Laboratory Tests Test 05/11/17 22:50 05/11/17 22:55 White Blood Count 6.810^3/ul Red Blood Count 4.0810^6/ul Hemoglobin 12.4g/dl Hematocrit 36.6% Mean Corpuscular Volume 89.7fl Mean Corpuscular Hemoglobin 30.4pg Mean Corpuscular Hemoglobin Concent 33.9g/dl Red Cell Distribution Width 12.3% Platelet Count 34632^3/UL Mean Platelet Volume 10.1fl Neutrophils % 49.4% Lymphocytes % 43.2% Monocytes % 5.8% Eosinophils % 1.0% Basophils % 0.3% Nucleated Red Blood Cells % 0.0/100WBC Neutrophils # 3.410^3/ul Lymphocytes # 2.910^3/ul Monocytes # 0.410^3/ul Eosinophils # 0.110^3/ul Basophils # 0.010^3/ul Nucleated Red Blood Cells # 0.010^3/ul Sodium Level 144mmol/L Potassium Level 3.8mmol/L Chloride Level 101mmol/L Carbon Dioxide Level 27mmol/L Anion Gap 20 Blood Urea Nitrogen 12mg/dl Creatinine 0.65mg/dl Glucose Level 99mg/dl Calcium Level 10.0mg/dl Total Bilirubin 0.2mg/dl Direct Bilirubin 0.00mg/dl Indirect Bilirubin 0.2mg/dl Aspartate Amino Transf (AST/SGOT) 23IU/L Alanine Aminotransferase (ALT/SGPT) 33IU/L Alkaline Phosphatase 82IU/L Troponin I < 0.012ng/ml Total Protein 8.1g/dl Albumin 5.0g/dl Globulin 3.10g/dl Albumin/Globulin Ratio 1.61 Lipase 27U/L Urine Color STRAW Urine Clarity CLEAR Urine pH 6.0 Urine Specific [place] 1.008 Urine Ketones NEGATIVEmg/dL Urine Nitrite NEGATIVEmg/dL Urine Bilirubin NEGATIVEmg/dL Urine Urobilinogen NEGATIVEmg/dL Urine Leukocyte Esterase NEGATIVELeu/ul Urine Microscopic RBC 2/HPF Urine Microscopic WBC 1/HPF Urine Hemoglobin 1+mg/dL Urine Glucose NEGATIVEmg/dL Urine Total Protein NEGATIVEmg/dl Current Medications Medications (Trade) Dose Ordered Sig/Lois Route PRN Reason Start Time Stop Time Status Last Admin Dose Admin Sodium Chloride (NS) 1,000 ml @ 1,000 mls/hr Q1H STAT IV 05/11/17 22:27 05/11/17 23:26 DC 05/11/17 23:24 Ondansetron HCl (Zofran Inj) 4 mg ONCE STAT IV 05/11/17 22:27 05/11/17 22:32 DC 05/11/17 23:24 Famotidine (Pepcid Iv) 20 mg ONCE ONCE IV 05/11/17 22:30 05/11/17 22:32 DC 05/11/17 23:24 Miscellaneous Medication (Gi Cocktail (2)) 40 ml ONCE ONCE PO 05/12/17 00:30 05/12/17 00:32 DC 05/12/17 00:58 IV Flush 10 ml 10 ml STK-MED ONCE .ROUTE 05/12/17 00:54 05/12/17 00:55 DC 05/12/17 01:15 Sodium Chloride (NS) 100 ml @ ud STK-MED ONCE .ROUTE 05/12/17 00:54 05/12/17 00:55 DC 05/12/17 01:16 Iohexol (Omnipaque 300mg/ ml) 150 ml STK-MED ONCE .ROUTE 05/12/17 00:54 05/12/17 00:55 DC 05/12/17 01:16 Hydromorphone HCl (Dilaudid) 1 mg ONCE STAT IV 05/12/17 01:27 05/12/17 01:28 DC 05/12/17 01:38 Normal saline IV bolus was given here in emergency department for rehydration, patient tolerated IV fluids.Patient was given Zofran here in the emergency department. After treatment, patient was able to tolerate po fluids here in the emergency department without any vomiting. There is no signs and symptoms of dehydration. Pepcid was given here in emergency department. EKG was done, read by me and is sinus bradycardia with first-degree AV block at a rate of 59, normal axis, there is no ST changes or changes in the EKG that indicates any cardiac emergencies at this time. Patient's EKG was also reviewed by Dr. Lincoln. Impression: no acute findings on EKG PROCEDURE: US right upper quadrant CLINICAL INDICATION: Abdominal pain TECHNIQUE: Multiple real-time images were acquired of the patient's right upper abdomen utilizing a high resolution transducer. COMPARISON: Ultrasound 04/05/2017. CT abdomen 04/10/2017. MRI abdomen 2016 FINDINGS: Liver: Normal in size, contour and echogenicity. The maximum dimension estimated at 17.2 cm . Gallbladder: Findings are compatible with prior cholecystectomy Common bile duct: Normal; 4.2 mm. There is no evidence for choledocholithiasis. Interval decrease in size compared to the prior study Right Kidney: Normal; maximum length measured at approximately 12.5 cm. Pancreas: Visualized portions are normal. The tail is partially obscured by bowel gas. RPTAT:HJJR IMPRESSION: Interval decrease in caliber of the common bile duct compared to the previous examinations from approximately 9 mm to 4.2 mm in this patient who is status post cholecystectomy. Otherwise unremarkable exam. Physician Eduard Date Time Electronically viewed and signed by Physician Eduard on 05/11/2017 23:38 JR/ CC: RONALDO PISANO NP PROCEDURE: CT ABDOMEN/PELVIS WITH CONTRAST CLINICAL INDICATION: 42-year-old female with abdominal pain. TECHNIQUE: The study was performed utilizing a [employer] AI VCT 64-slice CT scanner. Direct axial sections were obtained through the abdomen and pelvis with the use of 100 cc of Omnipaque-300 nonionic intravenous contrast material. Sagittal and coronal reformations were obtained. One or more of the following dose reduction techniques were utilized: automated exposure control, adjustment of the mA and/or kV according to patient's size or use of iterative reconstruction technique. The images were reviewed on a PACS workstation. CTD/ vol = 7.3 mGy; Total Exam DLP = 376.5 mGy-cm. COMPARISON: CT abdomen/pelvis April 10, 2017; right upper quadrant ultrasound May 11, 2017.. FINDINGS: The lung bases are unremarkable. There is no evidence for significant pleural effusion. The liver has a normal size and contour without focal areas of abnormal density or contrast enhancement. There is mild intrahepatic biliary ductal dilatation. Surgical clips are seen within the gallbladder fossa consistent with prior cholecystectomy. The distal common bile duct measures approximately 5.7 mm. The pancreas is without areas of abnormal attenuation or contrast enhancement. This spleen is identified and has a normal size without abnormal density or contrast enhancement. The adrenal glands are unremarkable. The kidneys are functional bilaterally. There are punctate nonobstructing calculi within the mid right and upper/mid left kidney without evidence for obstructive uropathy. The urinary bladder contains urine. There is mild retained stool within the ascending and transverse colon without obstruction. The appendix is again noted to be mildly prominent measuring 7 mm but without surrounding inflammatory changes and is without significant interval change. The uterus is diminutive presumably from prior hysterectomy. There is an ovoid right adnexal fatty soft tissue mass measuring approximately 1.5 x 1.2 x 1.0 cm which presumably is ovarian in origin and represents a small dermoid. This was present previously and is without significant interval change. There is no significant free fluid. The aortoiliac vessels are without aneurysmal dilatation. The osseous structures are intact. IMPRESSION: 1. Status post cholecystectomy with mild intrahepatic biliary ductal dilatation. 2. Punctate bilateral nonobstructing renal calculi. 3. Mild retained stool within the proximal colon without obstruction. 4. Mildly prominent appendix measuring 7 mm but without surrounding inflammatory changes or interval change. Clinical correlation is necessary. 5. Small ovoid right adnexal fatty soft tissue mass most likely representing a small dermoid without interval change. .Catracho Khoury MD, MD Date Time Electronically viewed and signed by .Catracho Khoury MD, on 05/12/2017 02:15 .M/ CC: RONALDO PISANO CARDIOPULMONARY TECHNOLOGIST Procedures/MDM Medical Decision Making: Patient's epigastric pain most that is consistent with gastritis. No gallbladder stone or obstruction noted, no biliary ductal dilatation. Lipase is normal, liver for emergent tests are normal. There is an incidental finding of a dermoid cyst and some nonobstructing calculi and multiple amount of stool in the abdomen which may be causing some of the pain. No bowel perforation noted. There is low suspicion for abdominal emergencies at this time. Patients abdominal exam is normal at this time. Patients radiology exam does not show any abdominal emergencies at this time. There is low suspicion for appendicitis, cholecystitis, abdominal aortic aneurysms or peritonitis at this time. There is low suspicion for sepsis. Patient appears well and is hemodynamically stable. Disposition: Home. Condition: Stable Prescription [place], Zofran, Mylanta, miralax, colace continue pantoprazole, Instructions: Patient is advised to take medications as prescribed. Patient is advised to rest, increase fluid intake and do brat diet for next 1-2 days and progress as tolerated. Patient is advised that if symptoms are worse, severe abdominal pain, uncontrolled vomiting, high fever, severe flank pain, worst signs and symptoms, to return to the emergency department immediately. Otherwise, patient can follow up with primary care doctor in 5-7 days. GI doctor for possible EGD. Departure Diagnosis: Primary Impression: Abdominal pain Abdominal location: epigastric Qualified Code: R10.13 - Epigastric pain Additional Impressions: Ovarian cyst Laterality: right Qualified Code: N83.201 - Cyst of right ovary Constipated Constipation type: unspecified constipation type Qualified Code: K59.00 - Constipation, unspecified constipation type Renal stones Condition: Stable Patient Instructions: Constipation (Adult), Epigastric Pain (Uncertain Cause), Ovarian Cyst Additional Instructions: Patient is advised to take medications as prescribed. Patient is advised to rest, increase fluid intake and do brat diet for next 1-2 days and progress as tolerated. Patient is advised that if symptoms are worse, severe abdominal pain , uncontrolled vomiting, high fever, severe flank pain, worst signs and symptoms , to return to the emergency department immediately. Otherwise, patient can follow up with primary care doctor in 5-7 days. GI doctor for possible EGD. RONALDO PISANO NP May 11, 2017 22:44
[2017-05-11 23:17] LABS: ADD SCAN DIFF NO
[2017-05-11 23:19] LABS: BASOPHILS % 0.3 % (0.0-2.0); EOSINOPHILS # 0.1 10^3/ul (0.0-0.5); HEMATOCRIT 36.6 % (37.0-47.0); HEMOGLOBIN 12.4 g/dl (12.0-16.0); LYMPHOCYTES # 2.9 10^3/ul (0.8-2.9); LYMPHOCYTES % 43.2 % (15.0-51.0); MEAN CORPUSCULAR HEMOGLOBIN 30.4 pg (29.0-33.0); MEAN CORPUSCULAR HGB CONC 33.9 g/dl (32.0-37.0); MEAN CORPUSCULAR VOLUME 89.7 fl (82.0-101.0); MEAN PLATELET VOLUME 10.1 fl (7.4-10.4); MONOCYTE # 0.4 10^3/ul (0.3-0.9); MONOCYTES % 5.8 % (0.0-11.0); NEUTROPHIL # 3.4 10^3/ul (1.6-7.5); NEUTROPHILS % 49.4 % (39.0-77.0); PLATELET COUNT 237 10^3/UL (140-415); RED BLOOD COUNT 4.08 10^6/ul (4.20-5.40); RED CELL DISTRIBUTION WIDTH 12.3 % (11.5-14.5); WHITE BLOOD COUNT 6.8 10^3/ul (4.8-10.8)
[2017-05-11 23:38] LABS: ADD UMIC YES; UR ASCORBIC ACID NEGATIVE (NEGATIVE); UR BILIRUBIN (Dip) NEGATIVE (NEGATIVE); UR BLOOD (Dip) 1+ mg/dL (NEGATIVE); UR CLARITY CLEAR (CLEAR); UR COLOR STRAW (YELLOW); UR GLUCOSE (Dip) NEGATIVE (NEGATIVE); UR KETONES (Dip) NEGATIVE (NEGATIVE); UR LEUKOCYTE ESTERASE (Dip) NEGATIVE Leu/ul (NEGATIVE); UR NITRITE (Dip) NEGATIVE (NEGATIVE); UR RBC 2 /HPF (0-5); UR SPECIFIC GRAVITY (Dip) 1.008 (1.003-1.030); UR TOTAL PROTEIN (Dip) NEGATIVE (NEGATIVE); UR UROBILINOGEN (Dip) NEGATIVE (NEGATIVE)
[2017-05-11 23:38] LABS: ALBUMIN/GLOBULIN RATIO 1.61; BILIRUBIN,INDIRECT 0.2 mg/dl (0-1.1); BILIRUBIN,TOTAL 0.2 mg/dl (0.2-1.3); CREATININE 0.65 mg/dl (0.44-1.00); POTASSIUM 3.8 mmol/L (3.5-5.1); TOTAL PROTEIN 8.1 g/dl (6.1-8.1)
--- NOTE | 2017-05-11 23:39 | RADRPT ---
PROCEDURE: US right upper quadrant CLINICAL INDICATION: Abdominal pain TECHNIQUE: Multiple real-time images were acquired of the patient's right upper abdomen utilizing a high resolution transducer. COMPARISON: Ultrasound 04/05/2017. CT abdomen 04/10/2017. MRI abdomen 04/09/2017 FINDINGS: Liver: Normal in size, contour and echogenicity. The maximum dimension estimated at 17.2 cm . Gallbladder: Findings are compatible with prior cholecystectomy Common bile duct: Normal; 4.2 mm. There is no evidence for choledocholithiasis. Interval decrease in size compared to the prior study Right Kidney: Normal; maximum length measured at approximately 12.5 cm. Pancreas: Visualized portions are normal. The tail is partially obscured by bowel gas. RPTAT:HJJR IMPRESSION: Interval decrease in caliber of the common bile duct compared to the previous examinations from appr oximately 9 mm to 4.2 mm in this patient who is status post cholecystectomy. Otherwise unremarkable exam. Physician Eduard Date Time Electronically viewed and signed by Physician Eduard on 05/11/2017 23:38 /
[2017-05-12] MEDS ORDERED: LIDOCAINE/MYLANTA 40 ML BTL PO ONE (00:30)
[2017-05-12] MEDS ORDERED: IOHEXOL 300MG/ML 150 ML BTL ONE (00:54)
[2017-05-12] MEDS ORDERED: SOD CHLORIDE 0.9% 100 ML ONE (00:54)
[2017-05-12] MEDS ORDERED: HYDROmorphONE 1 MG/ML SYG IV STA (01:27)
--- NOTE | 2017-05-12 02:16 | RADRPT ---
PROCEDURE: CT ABDOMEN/PELVIS WITH CONTRAST CLINICAL INDICATION: 42-year-old female with abdominal pain. TECHNIQUE: The study was performed utilizing a [employer] VCT 64-slice CT scanner. Direct axia l sections were obtained through the abdomen and pelvis with the use of 100 cc of Omnipaque-300 jai onic intravenous contrast material. Sagittal and coronal reformations were obtained. One or more of the following dose reduction techniques were utilized: automated exposure control, adjustment of the mA and/or kV according to patient's size or use of iterative reconstruction technique. The images were reviewed on a PACS workstation. CTD/vol = 7.3 mGy; Total Exam DLP = 376.5 mGy-cm. COMPARISON: CT abdomen/pelvis April 10, 2017; right upper quadrant ultrasound May 11, 2017.. FINDINGS: The lung bases are unremarkable. There is no evidence for significant pleural effusion. The liver has a normal size and contour without focal areas of abnormal density or contrast enhancement. There is mild intrahepatic biliary ductal dilatation. Surgical clips are seen within the gallbladder fos sa consistent with prior cholecystectomy. The distal common bile duct measures approximately 5.7 mm . The pancreas is without areas of abnormal attenuation or contrast enhancement. This spleen is id entified and has a normal size without abnormal density or contrast enhancement. The adrenal glands are unremarkable. The kidneys are functional bilaterally. There are punctate nonobstructing calculi within the mid right and upper/mid left kidney without evidence for obstructive uropathy. The urina ry bladder contains urine. There is mild retained stool within the ascending and transverse colon wi thout obstruction. The appendix is again noted to be mildly prominent measuring 7 mm but without surrounding inflammatory changes and is without significant interval change. The uterus is diminuti ve presumably from prior hysterectomy. There is an ovoid right adnexal fatty soft tissue mass measu ring approximately 1.5 x 1.2 x 1.0 cm which presumably is ovarian in origin and represents a small d ermoid. This was present previously and is without significant interval change. There is no signifi cant free fluid. The aortoiliac vessels are without aneurysmal dilatation. The osseous structures a re intact. IMPRESSION: 1. Status post cholecystectomy with mild intrahepatic biliary ductal dilatation. 2. Punctate bilateral nonobstructing renal calculi. 3. Mild retained stool within the proximal colon without obstruction. 4. Mildly prominent appendix measuring 7 mm but without surrounding inflammatory changes or interva l change. Clinical correlation is necessary. 5. Small ovoid right adnexal fatty soft tissue mass most likely representing a small dermoid withou t interval change. .Catracho Khoury MD, Date Time Electronically viewed and signed by .Catracho Khoury MD, on 05/12/2017 02:15 .M/
[2017-05-12] MEDS ORDERED: DOCU-144 PO (02:26)
[2017-05-12] MEDS ORDERED: MAG-19 PO (02:26)
[2017-05-12] MEDS ORDERED: HYDR-906 PO (02:26)
[2017-05-12] MEDS ORDERED: ONDA4TAB14 PO (02:26)
[2017-05-12] MEDS ORDERED: POLY17PO6 PO (02:26)
[2017-05-12] MEDS ORDERED: ONDANSETRON 4 MG INJ IV STA (02:36)
[2017-05-12 03:00] VITALS: BP 154/74; PULSE 80; RESP 18
== END 2017-05-12 03:02 | disposition home or self-care (01) ==
LOC: FTE 21:31
DX: R10.13 Epigastric pain (principal); N83.201 Unspecified ovarian cyst, right side; K59.00 Constipation, unspecified; N20.0 Calculus of kidney; R11.0 Nausea; F17.210 Nicotine dependence, cigarettes, uncomplicated
CPT/HCPCS: 36415; 74177; 76705; 80053; 81001; 83690; 84484; 85025; 93005; 96374; 96375; 96376; 99285; J1170; J2405; J7030; Q9967

== ENCOUNTER 2017-05-28 09:49 | Day surgery (SDC) | payer BC ==
[~2017-05-28] VITALS: Ht 157.5 cm; Wt 62.8 kg
[~2017-05-28 09:49] MED LIST changes: +DOCU-144 PO; +HYDR-906 PO; +MAG-19 PO; +ONDA4TAB14 PO; +POLY17PO6 PO
[2017-05-28 10:21] VITALS: Ht 157.5 cm; Wt 62.8 kg
[2017-05-28 10:49] VITALS: BP 128/80; PULSE 73; RESP 18
[2017-05-28 11:40] VITALS: BP 124/74; RESP 18
--- NOTE | 2017-05-29 05:42 | GILP ---
DATE OF PROCEDURE: 05/28/2017 DESCRIPTION OF PROCEDURE: A 42-year-old female undergoing this procedure for persistent epigastric and right upper quadrant pain with a negative CAT scan and MRI. The purpose of this procedure is to evaluate the upper GI tract and identify the cause of her pain. The risks of the procedure, related complications, sedative risk and alternatives was discussed and informed consent was obtained. The patient was brought to the GI lab and was sedated with Versed at 5 mg, 100 mg of fentanyl, and Zofran 4 mg, and after optimal sedation scope was passed as much into the esophagus, which was grossly normal. GE junction was at 35 cm. Stomach mucosa revealed chronic gastritis. Three biopsies were obtained to rule out H. pylori infection. Duodenum 1st and 2nd part including ampulla appeared normal. There was a good flow of bile from the ampulla. Biopsy taken from the 2nd part of the duodenum and also from the bulb to rule out celiac sprue. The scope was then straightened out and removed with good patient tolerance. Retro also was normal. IMPRESSION: 1. Normal esophagus. 2. Z-line regular at 35 cm. 3. Chronic gastritis. 4. Normal duodenal 1st and 2nd part including ampulla. 5. Small bowel biopsy done to rule out celiac sprue. PLAN: Review histopathology. Dictated By: Prasanna Perez MD /[email or web address] /Document#: [id number] CC: Micky Beard MD;*[facility]*
[2017-05-29] MEDS ORDERED: FENTAnyl 50 MCG/ML VIAL ONE (18:02)
[2017-05-29] MEDS ORDERED: MIDAZOLAM 1 MG/ML 2 ML INJ ONE ×3 (18:02)
[2017-05-29] MEDS ORDERED: ONDANSETRON 4 MG INJ ONE (18:02)
== END 2017-05-28 14:51 | disposition home or self-care (01) ==
LOC: GIL 09:49
PROVIDERS: ATTEND Internal Medicine Gastroenterology
DX: K29.50 Unspecified chronic gastritis without bleeding (principal)
CPT/HCPCS: J2250; J2405; J3010

== ENCOUNTER → 2017-11-21 | Outpatient (CLI) | END | disposition home or self-care (01) ==

== ENCOUNTER 2019-02-14 19:35 | Emergency (ER) | payer SELFPAY ==
[~2019-02-14] VITALS: Ht 157.5 cm; Wt 66.3 kg
[2019-02-14 19:44] VITALS: BP 159/72; PULSE 68; RESP 16; Ht 157.5 cm; Wt 66.3 kg
== END 2019-02-14 20:31 | disposition left against medical advice (07) ==
LOC: FTE 19:35
DX: Z53.21 Procedure and treatment not carried out due to patient leaving prior to being seen by health care provider (principal)